=== PATIENT | female | born 1980 | race Caucasian/White ===

== ENCOUNTER 2017-03-29 09:10 | Emergency (ER) | payer OTHER ==
[~2017-03-29] VITALS: Ht 165.1 cm; Wt 122.7 kg
[2017-03-29 09:12] VITALS: BP 130/84; PULSE 61; RESP 18; O2SAT 97
--- NOTE | 2017-03-29 09:19 | ED.REPORT ---
HPI-Abd Pain F Under 40 Date of Service Mar 29, 2017 ED Provider: Dr. Martin Pt is a 36 year old female presenting to the ED complaining of a subjective fever 2 days ago and yesterday. Associated symptoms include chills, waxing and waning abdominal pain (exacerbated by laying on her right side), diarrhea ( unaffected by eating, day 3), lower back pain, urinary frequency, and dizziness. Denies vomiting, bloody diarrhea, dysuria, syncope, or any other symptoms at this time. Nursing Notes Stated Complaint: ABD PAIN,FEVER Chief Complaint: Female Abdominal Pain Nursing Notes Reviewed: Yes Allergies: Coded Allergies: morphine (Verified Allergy, Unknown, ANAPHYLAXIS, 04/25/14) Scheduled PRN Hyoscyamine ODT (Hyoscyamine ODT) 0.125 Mg Tab.rapdis 0.125 MG PO 5XD PRN PRN For Pain General Time Seen by MD: 09:18 Chief Complaint Other (Fever) Hx Obtained From: Patient, Spouse Arrived By: Walk-in Sudden in Onset?: No Onset Occurred: 2 days ago Symptom Duration: Since onset Progression since Onset: Waxes and wanes Location: : Diffuse Quality: Painful Severity: Current: Mild Severity: Maximum: Moderate Recent Healthcare: No recent doctor visit, No recent hospitalization Similar Sx Previous: No Past Medical History Past Medical History Hx of kidney infections, anxiety, depression Past Surgical History Skull fracture in 1998, had intraventricular shunt placed and then removed, fractured foot surgery, jaw and oral surgery, tonsillectomy Smoking History Unknown if Ever Smoker Ambulatory Status Independent Review of Systems Constitutional: Reports: Chills, Fever GI: Reports: Abdominal pain, Diarrhea, Denies: Nausea, Vomiting Female: Reports: Urinary frequency, Denies: Dysuria Musculoskeletal: Reports: Back pain Complete sys rev & neg: except as marked. Neurologic: Reports: Dizziness, Denies: Syncope Physical Exam Initial Vital Signs Vital Signs (First) Date Time Temp Pulse Resp B/P Pulse Ox O2 Delivery O2 Flow Rate FiO2 03/29/17 09:12 36.6 61 18 130/84 97 Room Air Initial VS: Reviewed Head / Eyes: Atraumatic, Normocephalic, PERRL ENT: Mucous membranes moist, Conjunctiva normal, No scleral icterus Extremities: Vascular intact, Neuro intact, No swelling, No tenderness Skin: Warm, Dry, No cyanosis Neurologic: Alert, Oriented, Nonfocal Psychiatric: Mood/affect normal, Behavior normal, Normal thought content General/Constitutional: Awake, Alert, No acute distress, Well appearing Respiratory / Chest: Breath sounds NL, Breath sounds = bilat, No respiratory distress, No rales, No rhonchi, No wheezing Cardiovascular: Heart rate NL, Regular rhythm, Heart sounds NL, Peripheral circulation NL Abdomen: Atraumatic, No guarding, No rebound Tenderness/Guarding/Rebound: Positive: Tender RUQ... (Mild), Negative: Rico's sign positive Back: Atraumatic, Full range of motion, Painless range of motion Left CVA tenderness Interpretation & Diagnostics Lab Results Interpretation Result Diagram: 03/29/17 0930 03/29/17 0930 Test 03/29/17 09:30 03/29/17 10:32 White Blood Count 11.7th/mm3 (3.8-10.1) Red Blood Count 4.49mil/mm3 (3.90-5.20) Hemoglobin 13.0g/dL (12.0-15.6) Hematocrit 38.3% (35.0-46.0) Mean Corpuscular Volume 85.3fL (81-100) Mean Corpuscular Hemoglobin 29.0pg (27.0-35.0) Mean Corpuscular Hemoglobin Concent 33.9% (32.0-37.0) Red Cell Distribution Width 13.1% (12.3-15.4) Platelet Count 220bil/L (150-400) Neutrophils (%) (Auto) 72.1% (40-74) Lymphocytes (%) (Auto) 17.5% (14-46) Monocytes (%) (Auto) 8.9% (4-12) Eosinophils (%) (Auto) 0.9% (0-5) Basophils (%) (Auto) 0.3% (0-3) Sodium Level 139mEq/L (134-144) Potassium Level 4.0mEq/L (3.5-5.2) Chloride Level 102mEq/L (97-108) Carbon Dioxide Level 22mmol/L (18-29) Blood Urea Nitrogen 9mg/dL (6-20) Creatinine 0.64mg/dL (0.57-1.00) Estimat Glomerular Filtration Rate 151mL/min (>59) Glucose Level 111mg/dL (60-99) Calcium Level 9.2mg/dL (8.5-10.1) Total Bilirubin 0.2mg/dL (0.0-1.2) Aspartate Amino Transf (AST/SGOT) 26U/L (0-50) Alanine Aminotransferase (ALT/SGPT) 22U/L (0-32) Alkaline Phosphatase 67U/L (25-150) Total Protein 7.0g/dL (6.4-8.4) Albumin 4.1g/dL (3.4-5.0) Lipase 33U/L (13-60) Hold Hogan Top Tube Received (Received) Urine Color Yellow (YELLOW) Urine Appearance Cloudy (CLEAR,HAZY) Urine pH 5.5 (5.0-8.0) Urine Specific Grandy 1.030 (1.003-1.035) Urine Protein Tracemg/dL (NEG,TRACE) Urine Glucose (UA) Negativemg/dL (NEGATIVE) Urine Ketones 15mg/dL (NEGATIVE) Urine Occult Blood Small (NEGATIVE) Urine Nitrite Negative (NEGATIVE) Urine Bilirubin Negative (NEGATIVE) Urine Urobilinogen Normalmg/dL (NORMAL) Urine Leukocyte Esterase Negative (NEGATIVE) Urine RBC 0-2/hpf (0-2) Urine WBC 6-10/hpf (0-5) Urine Epithelial Cells Occasional/hpf (NONE-MOD) Urine Crystals Amorphous urates (NONE Urine Bacteria Few/hpf (NONE-FEW) Urine Hyaline Casts None/lpf (NONE) Urine Granular Casts None seen (NONE SEEN) Urine Waxy Casts None seen (NONE SEEN) Urine Red Blood Cell Casts None seen (NONE SEEN) Urine White Blood Cell Casts None seen (NONE SEEN) Urine Mucus None seen (None Seen) Urine Trichomonas None seen (NONE SEEN) Urine Yeast None (NONE SEEN) Urinalysis Comment None Urine Culture Reflexed Indicated Re-Eval/Medical Decision Re-Evaluation/Progress : Time of Eval: 11:05 Patient Status: Condition improved Re-Evaluation/Progress Note: Pt feeling improved though still having episodes of abdominal pain intermittently. Discussed plan for discharge. Pt understands and agrees with plan. Counseled Regarding: Diagnosis, Lab results, Need for follow-up, When/why to return to ED Discharge & Departure Primary Impression: Diarrhea Additional Impressions: Moderate dehydration Right upper quadrant abdominal pain Disposition: Home Discharge Condition All VS Reviewed: Yes Condition: Improved Additional Instructions: No dangerous condition is discovered at this time. If your pain persists, I recommended follow-up with the clinic early next week. Call me if you have any questions. If the diarrhea persists, you should follow up next week. For now, I recommend loperamide as directed on the box to help quell the diarrhea. Focus on oral hydration as this is the main risk of diarrhea. Referrals: Dieudonne Waters MD (PCP) Scribe Attestation Portions of this note were transcribed by Adrian Carrillo. I, Dr. Martin personally performed the history, physical exam and medical decision-making; I reviewed and confirmed the accuracy of the information in the transcribed note. Signed by: Ibeth Blount, 03/29/2017 at 1107. copies to: Dieudonne Waters MD, Kirk H MD Mar 29, 2017 09:19 ADRIAN CARRILLO Mar 29, 2017 09:26
[2017-03-29 09:53] LABS: BASOPHILS % (AUTO) 0.3 % (0-3); EOSINOPHILS % (AUTO) 0.9 % (0-5); MONOCYTES % (AUTO) 8.9 % (4-12); Mean Corpuscular Volume 85.3 fL (81-100); NEUTROPHILS % (AUTO) 72.1 % (40-74); Platelet Count 220 bil/L (150-400)
[2017-03-29 10:57] LABS: APPEARANCE,URINE CLOUDY (CLEAR,HAZY); COLOR,URINE YELLOW (YELLOW); OCCULT BLOOD,URINE SMALL (NEGATIVE); PH,URINE 5.5 (5.0-8.0); UROBILINOGEN,URINE NORMAL (NORMAL)
[2017-03-29] MEDS ORDERED: HYOS-19 PO (11:22)
[2017-03-29 11:45] VITALS: BP 131/77; PULSE 68
== END 2017-03-29 11:47 | disposition home or self-care (01) ==
LOC: SED 09:10
DX: R19.7 Diarrhea, unspecified (principal); E86.0 Dehydration; R10.11 Right upper quadrant pain; R50.9 Fever, unspecified; R68.83 Chills (without fever); M54.5 Low back pain; R35.0 Frequency of micturition; R42 Dizziness and giddiness; F41.9 Anxiety disorder, unspecified; F32.9 Major depressive disorder, single episode, unspecified; Z87.440 Personal history of urinary (tract) infections; Z88.5 Allergy status to narcotic agent